=== PATIENT | female | born 1935 | race Caucasian/White ===

== ENCOUNTER → 2018-04-23 | Outpatient (CLI) | payer OTHER, MEDICARE ==
[~2018-04-23] VITALS: Ht 149.9 cm; Wt 59.0 kg
[~2018-04-23] MED LIST: ATENOLOL 100MG100 MG PO; CHILDREN'S ASPI81 MG PO; COZAAR 25 MG TA25 M2 PO; HYDROCHLOROTHIA25 M2 PO; IRON325 PO; L-LYSINE500 M1 PO; MOBIC15 MG PO; NORVASC10 MG PO; PROTONIX40 M1 PO; SUPHEDRINE PE10 MG PO; UNICOMPLEX M TA1 TA1 PO; VITAMIN D2000 UNIT PO
[2018-04-23 14:14] LABS: HEMATOCRIT 44.8 % (37.0-47.0); HEMOGLOBIN 14.4 gm/dL (12.0-15.0); MCH 26.7 pg (26.0-34.0); MCHC 32.2 g/dL (28.0-37.0); MCV 82.9 fL (80.0-100.0); MPV 9.8 fl. (7.2-11.1); RBC 5.41 mil/uL (4.20-5.00); RDW-CV 13.8 % (10.5-14.5); WBC 7.6 thou/uL (4.0-11.0)
[2018-04-23 14:22] VITALS: BP 167/82
[2018-04-23 14:26] LABS: CALCIUM 9.9 mg/dL (8.5-10.1); CREATININE 1.1 mg/dL (0.6-1.3); POTASSIUM 4.2 mmol/L (3.5-5.1)
[2018-04-23 14:29] LABS: APTT 25.1 Seconds (25.0-31.3); PROTIME 10.1 Seconds (9.20-11.50)
--- NOTE | 2018-04-25 08:08 | OP ---
[address] [address] OPERATIVE REPORT Name: SHAEJESSICA MARTIN Room: [facility]#: [id number] Admission: 04/23/18 Attend Phys: Elfego Corey DO Discharge: Date of : 35 Report #: [id number] THIS REPORT FOR: //name// CC: Elfego Porter DATE OF SERVICE: 04/23/2018 PREOPERATIVE DIAGNOSIS: Severe peripheral vascular disease with right lower extremity rest pain. POSTOPERATIVE DIAGNOSIS: Severe peripheral vascular disease with right lower extremity rest pain. OPERATION: 1. Ultrasound-guided access of left common femoral artery. 2. Aortoiliofemoral angiogram. 3. Third order selective right lower extremity angiogram. 4. Right SFA and popliteal angioplasty and stent. 5. Right anterior tibial artery angioplasty. 6. Lutonix drug-coated balloon angioplasty of the right SFA and popliteal arteries. SURGEON: Elfego Corey DO. RESOLUTION SPECIALIST: DARBY Maldonado. ANESTHESIA: Sedation with local. ESTIMATED BLOOD LOSS: 50 mL. FLUIDS: Crystalloid. URINE OUTPUT: None. SPECIMENS: None. IMPLANTS: A 5 x 120 and a 5 x 100 and a 6 x 100 LifeStent in the right SFA and popliteal from the adductor hiatus to near the SFA origin. COMPLICATIONS: None. FINDINGS: Ultrasound demonstrated left common femoral artery to be soft and compressible with some mild posterior wall plaque, but suitable for access. Initial aortoiliofemoral angiogram demonstrated patent bilateral renal arteries without significant stenosis, small infrarenal aorta with some mild [facility] [address] [place] [address] OPERATIVE REPORT Name: JESSICA KAUFMAN Room: [facility]#: [id number] Admission: 04/23/18 Attend Phys: Elfego Corey DO Discharge: Date of : 35 Report #: [id number] atherosclerotic disease. Bilateral common iliac arteries, internal iliac arteries and external iliac arteries were all patent with some mild atherosclerotic disease. Patent right common femoral and deep femoral arteries. The deep femoral artery had a moderate stenosis in the mid portion. Right SFA occluded in the proximal portion just a few centimeters past the origin. Had reconstitution about the adductor hiatus. Her distal popliteal artery into her anterior tibial artery was occluded. Her tibioperoneal trunk, peroneal and posterior tibial arteries were chronically occluded. Following angioplasty of the anterior tibial artery as well as the popliteal and superficial femoral artery with stent, there was amish of inline flow into the anterior tibial artery into the foot. CLINICAL HISTORY: The patient is an 83-year-old woman with known severe peripheral vascular disease. She had previous right lower extremity angiogram with angioplasty intervention a few months ago, which she presents with recurrent rest pain with an CHASTITY of 0.3 on the right. DESCRIPTION OF PROCEDURE: After informed consent was obtained, the patient was taken to the angio suite, placed on the angio bed in supine position. She was administered sedation by the nurse at my discretion. The bilateral groins were prepped and draped in usual sterile fashion. Full timeout was performed identifying correct patient and procedure. Using ultrasound guidance, the left common femoral artery was identified. Skin and subcutaneous tissues were anesthetized with local anesthetic. It was accessed with micropuncture needle preserving the ultrasound images. Then, using Seldinger technique, a microwire and microsheath were placed, ultimately upsized to a 6-Albanian sheath over Glidewire Advantage. I then passed a flush catheter in the infrarenal aorta and performed aortoiliofemoral angiogram with findings noted above. I then obtained up and over access across the bifurcation, positioned catheter in the right common femoral artery, performed the selective right lower extremity angiogram with the findings noted above. I then exchanged out for a 6-Albanian up and over sheath and administered 7000 units of intravenous heparin. This was redosed to 1000 units in an hour interval. I then used a combination of Glidewire Advantage and seeker catheter. I was able to navigate across the superficial femoral artery occlusion. Followup imaging confirmed intraluminal position within the distal popliteal artery. I then exchanged out for a 0.014 wire and was able to navigate across the anterior tibial artery origin occlusion and catheter position confirmed intraluminal position within the anterior tibial artery. At this point, I then serially angioplastied the anterior tibial artery, first with a 2.5-mm balloon and subsequently 3-mm balloon and angioplastied the popliteal and superficial femoral artery with a 4-mm balloon at entire length. This was then re-angioplastied because of recoil stenosis and dissection with a Lutonix drug-coated balloon from the SFA origin down to the popliteal artery. Again, 4-mm Lutonix drug-coated balloon showed prolonged 3-minute inflations. [address] [address] OPERATIVE REPORT Name: JESSICA KAUFMAN [facility] [id number] Admission: 04/23/18 Attend Phys: Elfego Corey DO Discharge: Date of : 35 Report #: [id number] Following this, there was still a flow limiting dissection. Therefore, the SFA and popliteal arteries were stented and sutured from the adductor hiatus up to just distal to the SFA origin. This was postdilated with a 4-mm balloon with good result and amish of inline flow into the anterior tibial artery into the foot. Again, the posterior tibial and peroneal arteries were chronically occluded. At this point, satisfied with the result, the sheath was backed into the left external iliac artery. Selective angiogram was performed confirming excess position. I then exchanged out for a short 7-Albanian sheath and deployed a 6-Albanian Mynx closure device in standard fashion, partially reversed the heparin with 40 mg protamine. Manual pressure was held for 10 minutes. Once hemostasis was ensured, sterile dressing was applied. All sponge, sharp and instrument counts reported correct x 2. He tolerated the procedure well and transferred to recovery in stable condition. <ELECTRONICALLY SIGNED> By: Elfego Corey DO 04/25/18 0808 [id number] Corey DO /nt
== END | disposition home or self-care (01) ==
LOC: M.INT 11:51
PROVIDERS: Surgery
DX: I70.221 Atherosclerosis of native arteries of extremities with rest pain, right leg (principal); I10 Essential (primary) hypertension; Z90.49 Acquired absence of other specified parts of digestive tract; Z98.890 Other specified postprocedural states; Z86.018 Personal history of other benign neoplasm; Z87.442 Personal history of urinary calculi; Z79.82 Long term (current) use of aspirin; Z88.0 Allergy status to penicillin; Z79.899 Other long term (current) drug therapy; Z79.01 Long term (current) use of anticoagulants

== ENCOUNTER → 2018-10-08 | Outpatient (CLI) | payer OTHER, MEDICARE ==
[~2018-10-08] VITALS: Ht 152.4 cm; Wt 59.0 kg
[~2018-10-08] MED LIST changes: +PLAVIX 75 MG TA75 M1 PO
[2018-10-08 11:30] LABS: HEMATOCRIT 40.4 % (37.0-47.0); HEMOGLOBIN 13.2 gm/dL (12.0-15.0); MCH 27.2 pg (26.0-34.0); MCHC 32.7 g/dL (28.0-37.0); MCV 83.4 fL (80.0-100.0); MPV 9.4 fl. (7.2-11.1); RBC 4.84 mil/uL (4.20-5.00); RDW-CV 12.9 % (10.5-14.5); WBC 7.5 thou/uL (4.0-11.0)
[2018-10-08 11:34] VITALS: BP 187/52
[2018-10-08 11:40] LABS: APTT 26.4 Seconds (25.0-31.3); PROTIME 10.3 Seconds (9.20-11.50)
[2018-10-08 11:42] LABS: CALCIUM 9.7 mg/dL (8.5-10.1); CREATININE 1.5 mg/dL (0.6-1.3); POTASSIUM 4.2 mmol/L (3.5-5.1); TOTAL BILIRUBIN 0.2 mg/dL (<0.1-1.0); TOTAL PROTEIN 8.4 g/dL (6.4-8.2)
[2018-10-08 13:45] VITALS: BP 161/49
[2018-10-08 14:00] VITALS: BP 162/59
[2018-10-08 14:15] VITALS: BP 162/48
[2018-10-08 14:30] VITALS: BP 154/57
--- NOTE | 2018-10-09 15:11 | OP ---
[address] [address] OPERATIVE REPORT Name: SHAEJESSICA MARTIN Room: [facility].#: [id number] Admission: 10/08/18 Attend Phys: Elfego Corey DO Discharge: Date of : 35 Report #: [id number] THIS REPORT FOR: //name// CC: Naren Corey DATE OF SERVICE: 10/08/2018 PREOPERATIVE DIAGNOSES: Peripheral vascular disease with disabling right lower extremity claudication, recurrent in-stent stenosis. POSTOPERATIVE DIAGNOSES: Peripheral vascular disease with disabling right lower extremity claudication, recurrent in-stent stenosis. OPERATION: 1. Ultrasound-guided access to left common femoral artery. 2. Aortoiliofemoral angiogram. 3. Third order selective right lower extremity angiogram. 4. Right superficial femoral and popliteal artery angioplasty. 5. Right anterior tibial artery angioplasty. SURGEON: Elfego Corey DO. SUPERVISOR ELECTRIC: DARBY Maldonado. ANESTHESIA: Sedation with local for about 45 minutes of my discretion. SPECIMENS: None. COMPLICATIONS: None. FLUIDS: About 300 crystalloid. URINE OUTPUT: None. FINDINGS: Ultrasound demonstrated left common femoral artery to be compressible with some mild posterior wall plaque, but suitable for access. Initial aortogram demonstrated patent bilateral renal arteries, infrarenal aorta, bilateral common internal and external iliac arteries with just some mild atherosclerotic disease, patent right common femoral. Deep femoral arteries are really without significant stenosis. She had a high-grade stenosis at the origin of the right SFA extending into the stent. Then had some severe kind of diffuse focal stenoses throughout the right SFA stent. There was severe stenosis in the popliteal artery just distal to the stent after the adductor hiatus. The remainder of the popliteal artery was patent with just some moderate diffuse stenosis. Her posterior tibial and peroneal arteries appeared [facility] [address] [place] [address] OPERATIVE REPORT Name: JESSICA KAUFMAN Room: [facility]#: [id number] Admission: 10/08/18 Attend Phys: Elfego Corey DO Discharge: Date of : 35 Report #: [id number] to be chronically occluded. Her right anterior tibial artery was the sole runoff into the foot and this had part of the severe stenosis at its origin. Following angioplasty to the right SFA, popliteal, and anterior tibial artery, had worship of inline flow into the foot with just some mild residual stenosis. CLINICAL HISTORY: The patient is an 83-year-old woman with known peripheral vascular disease. She has previously undergone right lower extremity percutaneous revascularization. She has had recurrent claudication symptoms of the right lower extremity with a drop in her CHASTITY by 0.3 and arterial duplex suggesting a recurrent in-stent stenosis. We will recommend proceeding with angiogram for primary assisted patency. DESCRIPTION OF PROCEDURE: After informed consent was obtained, the patient was taken to the angio suite, placed on the angio bed in supine position. She was administered sedation by the nurse at my discretion. The left groin was prepped and draped in usual sterile fashion. A full timeout was performed identifying correct patient and procedure. Using ultrasound guidance, the left common femoral artery was identified. Skin and subcutaneous tissues were anesthetized with lidocaine anesthetic. The common femoral artery was accessed with micropuncture needle. These images were preserved. Using Seldinger technique, a microwire and microsheath were placed and ultimately upsized to a 6-Swiss sheath. I then advanced the Bentson wire and a flush catheter into the infrarenal aorta and performed the aortoiliofemoral angiogram with the findings noted above. I then obtained up and over access across the bifurcation and positioned the catheter within the right common femoral artery and performed a selective right lower extremity angiogram with the findings noted above. I then exchanged out for the Glidewire Advantage and seeker catheter and a 6-Swiss up and over sheath and administered 7000 units of intravenous heparin. I was able to navigate the Advantage wire down to the anterior tibial artery and followup imaging confirmed intraluminal position. I then angioplastied the SFA stents with a 5 mm balloon throughout their course from the origin to the adductor hiatus. I angioplastied the popliteal artery with 4 mm Ultraverse balloon and then angioplastied the anterior tibial artery with a 3 mm balloon. Followup imaging demonstrated a good result with just minimal residual stenosis. I really did not want to extend the stenting further distally given her single vessel runoff. At this point, I then exchanged out for the short 6-Swiss sheath and performed angiogram through the sheath to confirm access position, deployed a 6-Swiss Mynx closure device in standard fashion, partially reversed the heparin with 40 mg protamine. Manual pressure was held for 10 minutes. Once hemostasis was assured, sterile dressing was applied. All sponge, sharp and instrument counts [address] [address] OPERATIVE REPORT Name: JESSICA KAUFMAN Room: [facility] Kuo#: [id number] Admission: 10/08/18 Attend Phys: Elfego Corey DO Discharge: Date of : 35 Report #: [id number] reported correct x 2. She tolerated the procedure well and transferred to recovery in stable condition. <ELECTRONICALLY SIGNED> By: Elfego Corey DO 10/09/18 1511 [id number] Corey DO /nt
== END | disposition home or self-care (01) ==
LOC: M.INT 10:27
PROVIDERS: Surgery
DX: I70.211 Atherosclerosis of native arteries of extremities with intermittent claudication, right leg (principal); T82.856A Stenosis of peripheral vascular stent, initial encounter; I10 Essential (primary) hypertension; Z90.49 Acquired absence of other specified parts of digestive tract; Z98.890 Other specified postprocedural states; Z87.442 Personal history of urinary calculi; Z88.0 Allergy status to penicillin; Z79.82 Long term (current) use of aspirin; Z79.899 Other long term (current) drug therapy; Z82.49 Family history of ischemic heart disease and other diseases of the circulatory system; Z83.3 Family history of diabetes mellitus